=== PATIENT | male | born 1955 | race African-American/Black ===

== ENCOUNTER 2016-11-14 18:20 | Emergency (ER) | payer MEDICARE | END 2016-11-14 21:10 | disposition home or self-care (01) | LOC: D.ER 18:20 | DX: L72.3 Sebaceous cyst (principal) ==

== ENCOUNTER 2017-01-17 10:58 | Emergency (ER) | payer MEDICARE | END 2017-01-17 14:00 | disposition home or self-care (01) | LOC: D.ER 10:58 | DX: R07.81 Pleurodynia (principal) ==

== ENCOUNTER 2017-07-06 09:24 | Emergency (ER) | payer MEDICARE | END 2017-07-06 10:13 | disposition home or self-care (01) | LOC: D.ER 09:24 | DX: S40.862A Insect bite (nonvenomous) of left upper arm, initial encounter (principal); S40.861A Insect bite (nonvenomous) of right upper arm, initial encounter; W57.XXXA Bitten or stung by nonvenomous insect and other nonvenomous arthropods, initial encounter; Y93.89 Activity, other specified; Y92.019 Unspecified place in single-family (private) house as the place of occurrence of the external cause; F17.200 Nicotine dependence, unspecified, uncomplicated ==